=== PATIENT | female | born 1980 | race American Indian/Alaskan Native ===

== ENCOUNTER 2017-10-30 09:13 | Emergency (ER) | payer SELFPAY ==
[2017-10-30 11:17] VITALS: BP 116/76
--- NOTE | 2017-10-30 12:34 | Emergency Department Report ---
HPI - General Chief Complaint: Rectal Pain Time Seen by Provider: 10/30/17 12:17 - HPI HPI: 37-year-old female comes in complaining that she see a white specks in her stools for 1-1/2 weeks. Patient denies any pain or discomfort. She reports that she has a good appetite. She denies any constipation. She reports she has a stool 4-5 times a day. Stool is normal for him sometimes white chalky stuff. She reports her appetite fair she is eating normal TB dinners carryout. She denies any blood in her stool. She has no past medical history currently takes no other medications she does report she is taking over- the-counter protein performance supplement for increased weight gain. She reports she feels she may have lost a little weight. Denies any fevers chills nausea vomiting or diarrhea. Denies any abdominal pain sore throat chest pain shortness of breathing dysuria hematuria hematochezia. ED Past Medical Hx - Past Medical History Additional medical history: anemia - Surgical History Past Surgical History?: No - Social History Smoking Status: Current Some Day Smoker Substance Use Type: None - Medications Home Medications: Home Medications Medication Instructions Recorded Confirmed Last Taken Type Ferrous Sulfate [Feosol 325 MG tab] 325 mg PO QDAY #30 tablet 08/28/14 Unknown Rx medroxyPROGESTERone ACETATE 10 mg PO QDAY #10 tablet 08/28/14 Unknown Rx [Provera] ED Review of Systems ROS: Stated complaint: WHITE ITEMS IN STOOL Other details as noted in HPI Constitutional: denies: chills, fever Eyes: denies: eye pain, eye discharge, vision change ENT: denies: ear pain, throat pain Respiratory: denies: cough, shortness of breath, wheezing Cardiovascular: denies: chest pain, palpitations Endocrine: no symptoms reported Gastrointestinal: denies: abdominal pain, nausea, vomiting, diarrhea, constipation, hematemesis, melena, hematochezia Genitourinary: denies: urgency, dysuria, discharge Musculoskeletal: denies: back pain, joint swelling, arthralgia Skin: denies: rash, lesions Neurological: denies: headache, weakness, paresthesias Psychiatric: denies: anxiety, depression Hematological/Lymphatic: denies: easy bleeding, easy bruising Physical Exam - Physical Exam Vital Signs: Vital Signs 10/30/17 11:12 Temperature 99.2 F Pulse Rate 98 H Respiratory 16 Rate Blood Pressure 116/76 O2 Sat by Pulse 100 Oximetry Physical Exam: GENERAL APPEARANCE: Well developed, well nourished, in no acute distress. SKIN: Inspection of the skin reveals no rashes, ulcerations or petechiae. HEENT: The sclerae were anicteric and conjunctivae were pink and moist. Extraocular movements were intact and pupils were equal, round, and reactive to light with normal accommodation. External inspection of the ears and nose showed no scars, lesions, or masses. Lips, teeth, and gums showed normal mucosa. The oral mucosa, hard and soft palate, tongue and posterior pharynx were normal. NECK: Supple and symmetric. There was no thyroid enlargement, and no tenderness , or masses were felt. CHEST: Normal AP diameter and normal contour without any kyphoscoliosis. LUNGS: Auscultation of the lungs revealed normal breath sounds without any other adventitious sounds or rubs. CARDIOVASCULAR: There was a regular rate and rhythm without any murmurs, gallops , rubs. The carotid pulses were normal and 2+ bilaterally without bruits. ABDOMEN: Soft and nontender with normal bowel sounds. T LYMPH NODES: No lymphadenopathy was appreciated in the neck, axillae or groin. MUSCULOSKELETAL: Gait was normal. There was no tenderness or effusions noted. Muscle strength and tone were normal. EXTREMITIES: No cyanosis, clubbing or edema. NEUROLOGIC: Alert and oriented x 3. Normal affect. Gait was normal. ED Course Vital Signs 10/30/17 11:12 Temperature 99.2 F Pulse Rate 98 H Respiratory 16 Rate Blood Pressure 116/76 O2 Sat by Pulse 100 Oximetry ED Medical Decision Making - Medical Decision Making Patient has been evaluated by this provider Feslisa. Discussed with Dr. Soriano we feel that there is nothing acute patient needs to be followed up in the emergency room. Discussed the patient she could follow up with [facility] for further evaluation. Patient is stable and able to be discharged safely home. Critical care attestation.: If time is entered above; I have spent that time in minutes in the direct care of this critically ill patient, excluding procedure time. ED Disposition Clinical Impression: Stool color abnormal Disposition: DC-01 TO HOME OR SELFCARE Is pt being admited?: No Does the pt Need Aspirin: No Condition: Stable Instructions: High Fiber Diet (ED) Additional Instructions: Please follow up with [facility] for further evaluation. I have listed information below. Referrals: PRIMARY CARE, [Primary Care Provider] - 3-5 Days [facility] [Provider Group] - 3-5 Days Forms: Work/School Release Form(ED)
== END 2017-10-30 12:49 | disposition home or self-care (01) ==
LOC: ED 09:13
DX: R19.5 Other fecal abnormalities (principal); F17.200 Nicotine dependence, unspecified, uncomplicated; Z86.2 Personal history of diseases of the blood and blood-forming organs and certain disorders involving the immune mechanism
CPT/HCPCS: 99281

== ENCOUNTER 2018-08-24 15:38 | Emergency (ER) | payer BC ==
--- NOTE | 2018-08-24 18:15 | Emergency Department Report ---
ED Female HPI - General Chief complaint: Vaginal Bleeding Stated complaint: BLEEDING (PMS) Time Seen by Provider: 08/24/18 18:00 Source: patient Mode of arrival: Ambulatory Limitations: No Limitations - History of Present Illness Initial comments: This is 38-year-old female here complaining of vaginal bleeding in with clots since the last week of July when she started her period. Patient said that she is passing a lot of clots. She says she is using in 5-6 pads per day and she is feeling tired. Patient is at play at this hospital she does not have RADIO MECHANIC APPRENTICE. She does not have a primary care because she said she did not have the need for 1. Patient said that she feels tired and weak. Denies any abdominal or back pain. Denies any urinary burning, frequency or urgency. Denies any nausea or vomiting. Denies any chest pain or shortness of breath she said she had had an ultrasound in the past and they told her that she had fibroids when she started bleeding heavily. She said that she had no sexual activity since 2016. No other medical problems. Patient came here in 08/25/2014 and was placed on Provera daily for 10 days and for sulfate once a day for 30 days. MD Complaint: vaginal bleeding Onset/Timin -: week(s) Severity scale (0 -10): 0 Last Menstrual Period: 07/30/18 (present) EDC: 05/06/19 Associated Symptoms: vaginal bleeding. denies: vaginal discharge, abdominal pain, nausea/vomiting, fever/chills, headaches, loss of appetite, dysuria, h ematuria, rash, seizure, shortness of breath, syncope - Related Data Sexually active: No Previous Rx's Medication Instructions Recorded Last Taken Type Ferrous Sulfate [Feosol 325 MG tab] 325 mg PO QDAY #30 tablet 08/28/14 Unknown Rx medroxyPROGESTERone ACETATE 10 mg PO QDAY #10 tablet 08/28/14 Unknown Rx [Provera] Ferrous Sulfate [Slow Fe] 142 mg PO Q12H 30 Days #30 08/25/18 Unknown Rx tablet.er Ondansetron (Nf) [Zofran TAB] 8 mg PO Q8HR PRN #12 tablet 08/25/18 Unknown Rx cephALEXin [Keflex] 500 mg PO Q12HR 7 Days #14 cap 08/25/18 Unknown Rx Allergies Allergy/AdvReac Type Severity Reaction Status Date / Time No Known Allergies Allergy Verified 08/24/18 15:43 ED Review of Systems ROS: Stated complaint: BLEEDING (PMS) Other details as noted in HPI Constitutional: malaise. denies: chills, fever ENT: denies: throat pain, congestion Respiratory: denies: cough, shortness of breath, wheezing Cardiovascular: denies: chest pain, palpitations, edema, syncope Gastrointestinal: denies: abdominal pain, nausea, vomiting, diarrhea, constipation, hematemesis, hematochezia Genitourinary: abnormal menses. denies: dysuria, frequency, hematuria, discharge Musculoskeletal: denies: back pain, joint swelling, arthralgia, myalgia Skin: denies: rash Neurological: denies: headache, numbness, paresthesias, abnormal gait, vertigo ED Past Medical Hx - Past Medical History Previous Medical History?: Yes Additional medical history: anemia - Surgical History Past Surgical History?: No - Family History Family history: hypertension - Social History Smoking Status: Current Every Day Smoker Substance Use Type: None - Medications Home Medications: Home Medications Medication Instructions Recorded Confirmed Last Taken Type Ferrous Sulfate [Feosol 325 MG tab] 325 mg PO QDAY #30 tablet 08/28/14 Unknown Rx medroxyPROGESTERone ACETATE 10 mg PO QDAY #10 tablet 08/28/14 Unknown Rx [Provera] Ferrous Sulfate [Slow Fe] 142 mg PO Q12H 30 Days #30 08/25/18 Unknown Rx tablet.er Ondansetron (Nf) [Zofran TAB] 8 mg PO Q8HR PRN #12 tablet 08/25/18 Unknown Rx cephALEXin [Keflex] 500 mg PO Q12HR 7 Days #14 cap 08/25/18 Unknown Rx ED Physical Exam - General Limitations: No Limitations General appearance: alert, in no apparent distress - Head Head exam: Present: atraumatic, normocephalic, normal inspection - Eye Eye exam: Present: normal appearance, PERRL, EOMI Pupils: Present: normal accommodation - ENT ENT exam: Present: normal exam, normal orophraynx, mucous membranes moist - Neck Neck exam: Present: normal inspection, full ROM. Absent: tenderness, lymphadenopathy - Respiratory Respiratory exam: Present: normal lung sounds bilaterally. Absent: respiratory distress, chest wall tenderness - Cardiovascular Cardiovascular Exam: Present: regular rate, normal rhythm, normal heart sounds. Absent: systolic murmur, diastolic murmur - GI/Abdominal GI/Abdominal exam: Present: soft, normal bowel sounds. Absent: distended, tenderness, guarding, rebound, rigid, organomegaly, mass - External exam: Present: bleeding. Absent: normal external exam, erythema, swelling, lesions, lacerations, ecchymosis Speculum exam: Present: vaginal bleeding, other (clots). Absent: erythema, vaginal discharge, cervical discharge, foreign body, tissue, laceration Bi-manual exam: Present: normal bi-manual exam - Extremities Exam Extremities exam: Present: normal inspection, full ROM, normal capillary refill, other (No cce. + 2 pulses in all extremities, no neurovascular compromise). Absent: tenderness, pedal edema, joint swelling, calf tenderness - Back Exam Back exam: Present: normal inspection, full ROM, other (M believe that any difficulties while). Absent: tenderness, CVA tenderness (R), CVA tenderness (L), muscle spasm, paraspinal tenderness, vertebral tenderness, rash noted - Neurological Exam Neurological exam: Present: alert, oriented X3, normal gait - Psychiatric Psychiatric exam: Present: normal affect, normal mood - Skin Skin exam: Present: warm, dry, intact, normal color. Absent: rash ED Course Vital Signs 08/24/18 08/24/18 08/25/18 15:43 23:54 00:18 Temperature 98.2 F 9708 F H 97.8 F Pulse Rate 107 H 86 Respiratory 18 20 Rate Blood Pressure 129/90 Blood Pressure 118/68 [Left] O2 Sat by Pulse 100 98 Oximetry - Reevaluation(s) Reevaluation #1: 08/24/18 20:33 Patient received Toradol 30 mg IV, 1 L of normal saline, a milligram of Zofran IV. IV fluid is still infusing. Abdominal exam is nontender to palpate. Patient says she is already feeling better. Lab Results 08/24/18 08/24/18 08/24/18 Range/Units 18:19 18:19 18:19 WBC 7.5 (4.5-11.0) K/mm3 RBC 4.03 (3.65-5.03) M/mm3 Hgb 9.8 L (10.1-14.3) gm/dl Hct 29.1 L (30.3-42.9) % MCV 72 L (79-97) fl MCH 24 L (28-32) pg MCHC 34 (30-34) % RDW 25.7 H (13.2-15.2) % Plt Count 203 (140-440) K/mm3 Add Manual Diff Complete Total Counted 100 Seg Neuts % (Manual) 83.0 H (40.0-70.0) % Band Neutrophils % 1.0 % Lymphocytes % (Manual) 12.0 L (13.4-35.0) % Reactive Lymphs % (Man) 0 % Monocytes % (Manual) 1.0 (0.0-7.3) % Eosinophils % (Manual) 3.0 (0.0-4.3) % Basophils % (Manual) 0 (0.0-1.8) % Metamyelocytes % 0 % Myelocytes % 0 % Promyelocytes % 0 % Blast Cells % 0 % Nucleated RBC % Not Reportable Seg Neutrophils # Man 6.2 (1.8-7.7) K/mm3 Band Neutrophils # 0.1 K/mm3 Lymphocytes # (Manual) 0.9 L (1.2-5.4) K/mm3 Abs React Lymphs (Man) 0.0 K/mm3 Monocytes # (Manual) 0.1 (0.0-0.8) K/mm3 Eosinophils # (Manual) 0.2 (0.0-0.4) K/mm3 Basophils # (Manual) 0.0 (0.0-0.1) K/mm3 Metamyelocytes # 0.0 K/mm3 Myelocytes # 0.0 K/mm3 Promyelocytes # 0.0 K/mm3 Blast Cells # 0.0 K/mm3 WBC Morphology Not Reportable Hypersegmented Neuts Not Reportable Hyposegmented Neuts Not Reportable Hypogranular Neuts Not Reportable Smudge Cells Not Reportable Toxic Granulation Not Reportable Toxic Vacuolation Not Reportable Dohle Bodies Not Reportable Pelger-Huet Anomaly Not Reportable David Rods Not Reportable Platelet Estimate Consistent w auto Clumped Platelets Not Reportable Plt Clumps, EDTA Not Reportable Large Platelets Not Reportable Giant Platelets Not Reportable Platelet Satelliting Not Reportable Plt Morphology Comment Not Reportable RBC Morphology Not Reportable Dimorphic RBCs Not Reportable Polychromasia Not Reportable Hypochromasia Not Reportable Poikilocytosis Not Reportable Anisocytosis 1+ Microcytosis Not Reportable Macrocytosis Not Reportable Spherocytes Not Reportable Pappenheimer Bodies Not Reportable Sickle Cells Not Reportable Target Cells Not Reportable Tear Drop Cells Not Reportable Ovalocytes Not Reportable Helmet Cells Not Reportable Issa-Vassar Bodies Not Reportable [place] Rings Not Reportable [place] Cells Not Reportable Bite Cells Not Reportable Crenated Cell Not Reportable Elliptocytes Not Reportable Acanthocytes (Spur) Not Reportable Rouleaux Not Reportable Hemoglobin C Crystals Not Reportable Schistocytes Not Reportable Malaria parasites Not Reportable [place] Bodies Not Reportable Hem Pathologist Commnt No PT 12.3 (12.2-14.9) Sec. INR 0.88 (0.87-1.13) APTT 28.6 (24.2-36.6) Sec. Sodium (137-145) mmol/L Potassium (3.6-5.0) mmol/L Chloride (98-107) mmol/L Carbon Dioxide (22-30) mmol/L Anion Gap mmol/L BUN (7-17) mg/dL Creatinine (0.7-1.2) mg/dL Estimated GFR ml/min BUN/Creatinine Ratio % Glucose (65-100) mg/dL Calcium (8.4-10.2) mg/dL HCG, Quant (0-4) mIU/mL Urine Color (Yellow) Urine Turbidity (Clear) Urine pH (5.0-7.0) Ur Specific [place] (1.003-1.030) Urine Protein (Negative) mg/dL Urine Glucose (UA) (Negative) mg/dL Urine Ketones (Negative) mg/dL Urine Blood (Negative) Urine Nitrite (Negative) Ur Reducing Substances Urine Bilirubin (Negative) Urine Ictotest Urine Urobilinogen (<2.0) mg/dL Ur Leukocyte Esterase (Negative) Urine WBC (Auto) (0.0-6.0) /HPF Urine RBC (Auto) (0.0-6.0) /HPF Urine Bacteria (Auto) (Negative) /HPF Urine HCG, Qual (Negative) Blood Type O POSITIVE Antibody Screen Negative 08/24/18 08/24/18 08/24/18 Range/Units 18:19 18:46 19:40 WBC (4.5-11.0) K/mm3 RBC (3.65-5.03) M/mm3 Hgb (10.1-14.3) gm/dl Hct (30.3-42.9) % MCV (79-97) fl MCH (28-32) pg MCHC (30-34) % RDW (13.2-15.2) % Plt Count (140-440) K/mm3 Add Manual Diff Total Counted Seg Neuts % (Manual) (40.0-70.0) % Band Neutrophils % % Lymphocytes % (Manual) (13.4-35.0) % Reactive Lymphs % (Man) % Monocytes % (Manual) (0.0-7.3) % Eosinophils % (Manual) (0.0-4.3) % Basophils % (Manual) (0.0-1.8) % Metamyelocytes % % Myelocytes % % Promyelocytes % % Blast Cells % % Nucleated RBC % Seg Neutrophils # Man (1.8-7.7) K/mm3 Band Neutrophils # K/mm3 Lymphocytes # (Manual) (1.2-5.4) K/mm3 Abs React Lymphs (Man) K/mm3 Monocytes # (Manual) (0.0-0.8) K/mm3 Eosinophils # (Manual) (0.0-0.4) K/mm3 Basophils # (Manual) (0.0-0.1) K/mm3 Metamyelocytes # K/mm3 Myelocytes # K/mm3 Promyelocytes # K/mm3 Blast Cells # K/mm3 WBC Morphology Hypersegmented Neuts Hyposegmented Neuts Hypogranular Neuts Smudge Cells Toxic Granulation Toxic Vacuolation Dohle Bodies Pelger-Huet Anomaly David Rods Platelet Estimate Clumped Platelets Plt Clumps, EDTA Large Platelets Giant Platelets Platelet Satelliting Plt Morphology Comment RBC Morphology Dimorphic RBCs Polychromasia Hypochromasia Poikilocytosis Anisocytosis Microcytosis Macrocytosis Spherocytes Pappenheimer Bodies Sickle Cells Target Cells Tear Drop Cells Ovalocytes Helmet Cells Issa-Vassar Bodies [place] Cells Bite Cells Crenated Cell Elliptocytes Acanthocytes (Spur) Rouleaux Hemoglobin C Crystals Schistocytes Malaria parasites [place] Bodies Hem Pathologist Commnt PT (12.2-14.9) Sec. INR (0.87-1.13) APTT (24.2-36.6) Sec. Sodium 141 (137-145) mmol/L Potassium 3.7 (3.6-5.0) mmol/L Chloride 103.3 (98-107) mmol/L Carbon Dioxide 26 (22-30) mmol/L Anion Gap 15 mmol/L BUN 7 (7-17) mg/dL Creatinine 0.6 L (0.7-1.2) mg/dL Estimated GFR > 60 ml/min BUN/Creatinine Ratio 12 % Glucose 182 H (65-100) mg/dL Calcium 9.1 (8.4-10.2) mg/dL HCG, Quant 0.727 (0-4) mIU/mL Urine Color Red (Yellow) Urine Turbidity Cloudy (Clear) Urine pH 7.0 (5.0-7.0) Ur Specific [place] 1.008 (1.003-1.030) Urine Protein >500 (Negative) mg/dL Urine Glucose (UA) 50 (Negative) mg/dL Urine Ketones Tr (Negative) mg/dL Urine Blood Lg (Negative) Urine Nitrite Pos (Negative) Ur Reducing Substances Not Reportable Urine Bilirubin Neg (Negative) Urine Ictotest Not Reportable Urine Urobilinogen < 2.0 (<2.0) mg/dL Ur Leukocyte Esterase Neg (Negative) Urine WBC (Auto) 40.0 H (0.0-6.0) /HPF Urine RBC (Auto) > 182.0 (0.0-6.0) /HPF Urine Bacteria (Auto) 1+ (Negative) /HPF Urine HCG, Qual Negative (Negative) Blood Type Antibody Screen Urine culture pending 08/24/18 23:44 08/24/18 23:45 Reevaluation #2: 08/24/18 22:15 Patient remained stable IV fluid completed. She is in no acute distress. Awaiting ultrasound results Reevaluation #3: 08/24/18 23:[address] Pabon who is RADIO MECHANIC APPRENTICE and inform her that radiology call and report that patient has what look to be a gestational sac and her te st is negative patient also uterine fibroids, anemia and UTI. I discussed patient presentation and clinical findings and she reports that she thinks it might be a clot and that patient can follow up outpatient. She is to call the office on Sunday to get appointment.. Patient says she is feeling a lot better. She is aware of ultrasound results - Consultations Consultation #1: 08/24/18 23:04 Dr. Pabon informed of ultrasound results ED Medical Decision Making - Lab Data Result diagrams: 08/24/18 18:19 08/24/18 18:46 Lab Results 08/24/18 08/24/18 08/24/18 Range/Units 18:19 18:19 18:19 WBC 7.5 (4.5-11.0) K/mm3 RBC 4.03 (3.65-5.03) M/mm3 Hgb 9.8 L (10.1-14.3) gm/dl Hct 29.1 L (30.3-42.9) % MCV 72 L (79-97) fl MCH 24 L (28-32) pg MCHC 34 (30-34) % RDW 25.7 H (13.2-15.2) % Plt Count 203 (140-440) K/mm3 Add Manual Diff Complete Total Counted 100 Seg Neuts % (Manual) 83.0 H (40.0-70.0) % Band Neutrophils % 1.0 % Lymphocytes % (Manual) 12.0 L (13.4-35.0) % Reactive Lymphs % (Man) 0 % Monocytes % (Manual) 1.0 (0.0-7.3) % Eosinophils % (Manual) 3.0 (0.0-4.3) % Basophils % (Manual) 0 (0.0-1.8) % Metamyelocytes % 0 % Myelocytes % 0 % Promyelocytes % 0 % Blast Cells % 0 % Nucleated RBC % Not Reportable Seg Neutrophils # Man 6.2 (1.8-7.7) K/mm3 Band Neutrophils # 0.1 K/mm3 Lymphocytes # (Manual) 0.9 L (1.2-5.4) K/mm3 Abs React Lymphs (Man) 0.0 K/mm3 Monocytes # (Manual) 0.1 (0.0-0.8) K/mm3 Eosinophils # (Manual) 0.2 (0.0-0.4) K/mm3 Basophils # (Manual) 0.0 (0.0-0.1) K/mm3 Metamyelocytes # 0.0 K/mm3 Myelocytes # 0.0 K/mm3 Promyelocytes # 0.0 K/mm3 Blast Cells # 0.0 K/mm3 WBC Morphology Not Reportable Hypersegmented Neuts Not Reportable Hyposegmented Neuts Not Reportable Hypogranular Neuts Not Reportable Smudge Cells Not Reportable Toxic Granulation Not Reportable Toxic Vacuolation Not Reportable Dohle Bodies Not Reportable Pelger-Huet Anomaly Not Reportable David Rods Not Reportable Platelet Estimate Consistent w auto Clumped Platelets Not Reportable Plt Clumps, EDTA Not Reportable Large Platelets Not Reportable Giant Platelets Not Reportable Platelet Satelliting Not Reportable Plt Morphology Comment Not Reportable RBC Morphology Not Reportable Dimorphic RBCs Not Reportable Polychromasia Not Reportable Hypochromasia Not Reportable Poikilocytosis Not Reportable Anisocytosis 1+ Microcytosis Not Reportable Macrocytosis Not Reportable Spherocytes Not Reportable Pappenheimer Bodies Not Reportable Sickle Cells Not Reportable Target Cells Not Reportable Tear Drop Cells Not Reportable Ovalocytes Not Reportable Helmet Cells Not Reportable Issa-Vassar Bodies Not Reportable [place] Rings Not Reportable [place] Cells Not Reportable Bite Cells Not Reportable Crenated Cell Not Reportable Elliptocytes Not Reportable Acanthocytes (Spur) Not Reportable Rouleaux Not Reportable Hemoglobin C Crystals Not Reportable Schistocytes Not Reportable Malaria parasites Not Reportable [place] Bodies Not Reportable Hem Pathologist Commnt No PT 12.3 (12.2-14.9) Sec. INR 0.88 (0.87-1.13) APTT 28.6 (24.2-36.6) Sec. Sodium (137-145) mmol/L Potassium (3.6-5.0) mmol/L Chloride (98-107) mmol/L Carbon Dioxide (22-30) mmol/L Anion Gap mmol/L BUN (7-17) mg/dL Creatinine (0.7-1.2) mg/dL Estimated GFR ml/min BUN/Creatinine Ratio % Glucose (65-100) mg/dL Calcium (8.4-10.2) mg/dL HCG, Quant (0-4) mIU/mL Urine Color (Yellow) Urine Turbidity (Clear) Urine pH (5.0-7.0) Ur Specific [place] (1.003-1.030) Urine Protein (Negative) mg/dL Urine Glucose (UA) (Negative) mg/dL Urine Ketones (Negative) mg/dL Urine Blood (Negative) Urine Nitrite (Negative) Ur Reducing Substances Urine Bilirubin (Negative) Urine Ictotest Urine Urobilinogen (<2.0) mg/dL Ur Leukocyte Esterase (Negative) Urine WBC (Auto) (0.0-6.0) /HPF Urine RBC (Auto) (0.0-6.0) /HPF Urine Bacteria (Auto) (Negative) /HPF Urine HCG, Qual (Negative) Blood Type O POSITIVE Antibody Screen Negative 08/24/18 08/24/18 08/24/18 Range/Units 18:19 18:46 19:40 WBC (4.5-11.0) K/mm3 RBC (3.65-5.03) M/mm3 Hgb (10.1-14.3) gm/dl Hct (30.3-42.9) % MCV (79-97) fl MCH (28-32) pg MCHC (30-34) % RDW (13.2-15.2) % Plt Count (140-440) K/mm3 Add Manual Diff Total Counted Seg Neuts % (Manual) (40.0-70.0) % Band Neutrophils % % Lymphocytes % (Manual) (13.4-35.0) % Reactive Lymphs % (Man) % Monocytes % (Manual) (0.0-7.3) % Eosinophils % (Manual) (0.0-4.3) % Basophils % (Manual) (0.0-1.8) % Metamyelocytes % % Myelocytes % % Promyelocytes % % Blast Cells % % Nucleated RBC % Seg Neutrophils # Man (1.8-7.7) K/mm3 Band Neutrophils # K/mm3 Lymphocytes # (Manual) (1.2-5.4) K/mm3 Abs React Lymphs (Man) K/mm3 Monocytes # (Manual) (0.0-0.8) K/mm3 Eosinophils # (Manual) (0.0-0.4) K/mm3 Basophils # (Manual) (0.0-0.1) K/mm3 Metamyelocytes # K/mm3 Myelocytes # K/mm3 Promyelocytes # K/mm3 Blast Cells # K/mm3 WBC Morphology Hypersegmented Neuts Hyposegmented Neuts Hypogranular Neuts Smudge Cells Toxic Granulation Toxic Vacuolation Dohle Bodies Pelger-Huet Anomaly David Rods Platelet Estimate Clumped Platelets Plt Clumps, EDTA Large Platelets Giant Platelets Platelet Satelliting Plt Morphology Comment RBC Morphology Dimorphic RBCs Polychromasia Hypochromasia Poikilocytosis Anisocytosis Microcytosis Macrocytosis Spherocytes Pappenheimer Bodies Sickle Cells Target Cells Tear Drop Cells Ovalocytes Helmet Cells Issa-Vassar Bodies [place] Rings [place] Cells Bite Cells Crenated Cell Elliptocytes Acanthocytes (Spur) Rouleaux Hemoglobin C Crystals Schistocytes Malaria parasites [place] Bodies Hem Pathologist Commnt PT (12.2-14.9) Sec. INR (0.87-1.13) APTT (24.2-36.6) Sec. Sodium 141 (137-145) mmol/L Potassium 3.7 (3.6-5.0) mmol/L Chloride 103.3 (98-107) mmol/L Carbon Dioxide 26 (22-30) mmol/L Anion Gap 15 mmol/L BUN 7 (7-17) mg/dL Creatinine 0.6 L (0.7-1.2) mg/dL Estimated GFR > 60 ml/min BUN/Creatinine Ratio 12 % Glucose 182 H (65-100) mg/dL Calcium 9.1 (8.4-10.2) mg/dL HCG, Quant 0.727 (0-4) mIU/mL Urine Color Red (Yellow) Urine Turbidity Cloudy (Clear) Urine pH 7.0 (5.0-7.0) Ur Specific [place] 1.008 (1.003-1.030) Urine Protein >500 (Negative) mg/dL Urine Glucose (UA) 50 (Negative) mg/dL Urine Ketones Tr (Negative) mg/dL Urine Blood Lg (Negative) Urine Nitrite Pos (Negative) Ur Reducing Substances Not Reportable Urine Bilirubin Neg (Negative) Urine Ictotest Not Reportable Urine Urobilinogen < 2.0 (<2.0) mg/dL Ur Leukocyte Esterase Neg (Negative) Urine WBC (Auto) 40.0 H (0.0-6.0) /HPF Urine RBC (Auto) > 182.0 (0.0-6.0) /HPF Urine Bacteria (Auto) 1+ (Negative) /HPF Urine HCG, Qual Negative (Negative) Blood Type Antibody Screen Urine culture pending - Radiology Data Radiology results: report reviewed Patient has had transvaginal and a leg ultrasound done that was dictated by radiologist's report called to myself. I reviewed her ultrasound report resu lts. Please see report below. Findings [facility] [address] [place] [address] Ultrasound Report Signed Patient: DAKOTA TORRES MR#: [id number] : 1980 Acct:[id number] Age/Sex: 38 / F ADM Date: 08/24/18 Loc: ED Attending Dr: Ordering Physician: YAHAIRA BAEZ Date of Service: 08/24/18 Procedure(s): US transvaginal Accession Number(s): [id number] cc: YAHAIRA BAEZ FINAL REPORT EXAM: US TRANSVAGINAL HISTORY: Pelvic pain the patient is not clinically . Heavy vaginal bleeding for 3 weeks with anemia. TECHNIQUE: Transvaginal grayscale and color-flow imaging of the pelvis was performed. Comparison: Transabdominal study also performed today. FINDINGS: The pelvic anatomy is not clearly demonstrated with this study. The uterus appears to measure 14.1 centimeters x 10.5 centimeters x 10.4 centimeters. There is demonstration of an approximately 8 centimeter fibroid in the uterine fundus. More inferiorly within the uterus there is a hypoechoic collection with internal echoes that measures approximately 6.6 centimeters by a 2.7 centimeters by 4.4 centimeters in size. This is of unclear etiology. The right ovary is not visualized. The left ovary measures 2.9 centimeters x 1.9 centimeters x 1.6 centimeters and is unremarkable in appearance. No free fluid is demonstrated in the pelvis. IMPRESSION: 1. The pelvic anatomy is not clearly demonstrated with this study. 2. Approximately 8 centimeter fibroid is demonstrated in the uterine fundus. 3. Adjacent to the uterine fibroid and probably within the uterus there is a hypoechoic collection with internal echoes that measures approximately 6.6 centimeters in the maximum dimension. This is of unclear etiology in this patient who is not clinically . 4. The right ovary is not visualized. 5. The left ovary is unremarkable in appearance. Recommend referral to GENERATION MANAGER for further evaluation in this patient with heavy vaginal bleeding and heterogeneous collection that appears to be intrauterine.. Ultrasound imaging with GENERATION MANAGER present would be helpful. Alternatively MRI may be helpful for further evaluation. The above findings and recommendation for referral to GENERATION MANAGER were discussed with [employer]K RECE[employer] Amanda Pennington at 10:50 p.m. August 24, 2018. Transcribed By: ED Dictated By: BE LAZCANO MD Electronically Authenticated By: BE LAZCANO MD Signed Date/Time: 08/24/182307 DD/ 10 TD/TT: 08/24/182310 - Medical Decision Making This is a 38-year-old female here report that she has been having heavy menstrual cycle for over 4 weeks. She says she has had this in the past. She said she had a cycle in June that lasted 2 weeks and then she started the last week of July and she still bleeding. She says she is feeling weak and tired. Upon review of charts noted the patient was here in 2014 with similar problems, anemia and was placed on iron tablet and progesterone. Patient reveals that she has a uterine fibroid and ultrasound from 2015 shows the patient had a large uterine fibroid. Transvaginal and pelvic ultrasound done today and it shows 1. The pelvic anatomy is not clearly demonstrated with this study. 2. Approximately 8 centimeter fibroid is demonstrated in the uterine fundus. 3. Adjacent to the uterine fibroid and probably within the uterus there is a hypoechoic collection with internal echoes that measures approximately 6.6 centimeters in the maximum dimension. This is of unclear etiology in this patient who is not clinically . 4. The right ovary is not visualized. 5. The left ovary is unremarkable in appearance. Recommend referral to GENERATION MANAGER for further evaluation in this patient with heavy vaginal bleeding and heterogeneous collection that appears to be intrauterine.. Ultrasound imaging with GENERATION MANAGER present would be helpful. Alternatively MRI may be helpful for further evaluation. CBC with H&H of 9.8 and 29.1 and come. 2 H&H in 2015 it was better today. Platelets normal, PT/INR, PTT stable. Chemistry is stable except her glucose was 182. Urine negative and hormone negative. Patient and urinalysis were UTI and shows large amount of blood but there was azra blood and urine with specimen. She has greater than 500 protein suspect from blood and urine. Cloudy urine with positive bacteria. Patient has no urinary symptoms. Urine culture sent. I spoke with Dr. Pabon asked the radiologist called and informed her of patient's laboratory results and radiology concern regarding obtaining that looks like gestational sac and the uterus but she is not sure. Radiologist wanted RADIO MECHANIC APPRENTICE to see patient. Dr. Dylan Dinero informed me the patient can get an appointment in her office next week and follow-up because she thinks the patient has a clot that appears to be a sac but it could be a clot and patient is having large amount of clots. I informed patient of her ultrasound report, laboratory results and urinalysis for urinary tract infection, diagnosis and she voiced understanding. Patient was given 1 L of IV fluids in ED, Toradol 30 mg IV, Zofran 8 mg IV and able to tolerate fluids and says she is feeling better. I went over all her lab work with her and she voiced understanding. I discussed with her that I will place her on iron pill and also antibiotic for urinary tract infection. Patient discharged home in stable condition to follow up with Dr. Pabon in 2-3 days and given prescription for Keflex, Zofran and Slow Fe. Vital signs are stable she is afebrile and discharged home feeling better. - Differential Diagnosis malignancy ,miscarriage, fibroids, hemorrhagic UTI, menorrhagia Critical care attestation.: If time is entered above; I have spent that time in minutes in the direct care of this critically ill patient, excluding procedure time. ED Disposition Clinical Impression: Menorrhalgia Uterine fibroid Qualifiers: Uterine leiomyoma location: unspecified location Qualified Code(s): D25.9 - Leiomyoma of uterus, unspecified Anemia Qualifiers: Anemia type: other cause Other causes of anemia: other cause, not classified Qualified Code(s): D64.89 - Other specified anemias Fatigue Qualifiers: Fatigue type: unspecified Qualified Code(s): R53.83 - Other fatigue Disposition: DC-01 TO HOME OR SELFCARE Is pt being admited?: No Does the pt Need Aspirin: No Condition: Stable Instructions: Uterine Fibroids (ED), Urinary Tract Infection in Women (ED), Iron Rich Diet (ED), Menorrhagia (ED), Fatigue (ED), Anemia (ED) Additional Instructions: Please follow-up with Dr. 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 Take medication as prescribed. Increase fiber and fluid and your diet. Take medication for urinary tract infection Few symptoms worsen, return to the emergency room. Prescriptions: cephALEXin [Keflex] 500 mg PO Q12HR 7 Days #14 cap Ferrous Sulfate [Slow Fe] 142 mg PO Q12H 30 Days #30 tablet.er Ondansetron (Nf) [Zofran TAB] 8 mg PO Q8HR PRN #12 tablet PRN Reason: nausea or vomiting Referrals: DEB ALLAN MD [Staff Physician] - 2-3 Days JABIER SALMERON MD [Primary Care Provider] - 2-3 Days Forms: Work/School Release Form(ED)
[2018-08-24] MEDS ORDERED: NACL 0.9% 1000 ML 1,000 ML IV ONE (18:36)
[2018-08-24] MEDS ORDERED: ZOFRAN IV ONE (18:36)
[2018-08-24] MEDS ORDERED: TORADOL IVP ONE (18:36)
[2018-08-24 18:39] LABS: Hematocrit 29.1 % (30.3-42.9); Hemoglobin 9.8 gm/dl (10.1-14.3); Mean Corpuscular HGB Conc 34 % (30-34); Mean Corpuscular Volume 72 fl (79-97); Platelet Count 203 K/mm3 (140-440); Red Blood Count 4.03 M/mm3 (3.65-5.03)
[2018-08-24 18:43] LABS: INR 0.88 (0.87-1.13)
[2018-08-24 18:45] LABS: Partial Thromboplastin Time 28.6 Sec. (24.2-36.6)
[2018-08-24 18:48] LABS: Red Cell Distribution Width 25.7 % (13.2-15.2)
[2018-08-24 19:24] LABS: BUN/Creatinine Ratio 12; Blood Urea Nitrogen 7 mg/dL (7-17); Calcium 9.1 mg/dL (8.4-10.2); Hemolysis Index 1
[2018-08-24 20:48] LABS: HCG Qualitative,Urine Negative (Negative)
[2018-08-24 20:57] LABS: Bilirubin,Urine NEG (Negative); Blood,Urine LG (Negative); Color,Urine Red (Yellow); Urobilinogen,Urine < 2.0 mg/dL (<2.0)
[2018-08-24 21:04] LABS: Bacteria,Urine 1+ /HPF (Negative)
[2018-08-24 21:05] LABS: Protein,Urine >500 mg/dL (Negative); RBC,Urine > 182.0 /HPF (0.0-6.0)
[2018-08-24 21:23] LABS: Anisocytosis 1+; Band Neutrophils # (Manual) 0.1 K/mm3; Basophils % (Manual) 0 % (0.0-1.8); Platelet Estimate Consistent w Auto; Total Cells Counted 100
[2018-08-24] MEDS ORDERED: BACTRIM DS PO ONE (21:41)
--- NOTE | 2018-08-24 23:08 | Ultrasound Report ---
FINAL REPORT EXAM: US TRANSVAGINAL HISTORY: Pelvic pain the patient is not clinically . Heavy vaginal bleeding for 3 weeks with anemia. TECHNIQUE: Transvaginal grayscale and color-flow imaging of the pelvis was performed. Comparison: Transabdominal study also performed today. FINDINGS: The pelvic anatomy is not clearly demonstrated with this study. The uterus appears to measure 14.1 centimeters x 10.5 centimeters x 10.4 centimeters. There is demonstration of an approximately 8 centimeter fibroid in the uterine fundus. More inferiorly within the uterus there is a hypoechoic collection with internal echoes that measures approximately 6.6 centimeters by a 2.7 centimeters by 4.4 centimeters in size. This is of unclear et iology. The right ovary is not visualized. The left ovary measures 2.9 centimeters x 1.9 centimeters x 1.6 centimeters and is unremarkable in ap pearance. No free fluid is demonstrated in the pelvis. IMPRESSION: 1. The pelvic anatomy is not clearly demonstrated with this study. 2. Approximately 8 centimeter fibroid is demonstrated in the uterine fundus. 3. Adjacent to the uterine fibroid and probably within the uterus there is a hypoechoic collection wi th internal echoes that measures approximately 6.6 centimeters in the maximum dimension. This is of u nclear etiology in this patient who is not clinically . 4. The right ovary is not visualized. 5. The left ovary is unremarkable in appearance. Recommend referral to [facility] for further evaluation in this patient with heavy vaginal bleeding and hete rogeneous collection that appears to be intrauterine.. Ultrasound imaging with [facility] present would be helpful. Alternatively MRI may be helpful for further ev aluation. The above findings and recommendation for referral to [facility] were discussed with JASON Pennington at 10:50 p.m. August 24, 2018.
--- NOTE | 2018-08-24 23:12 | Ultrasound Report ---
FINAL REPORT EXAM: US PELVIC COMPLETE HISTORY: vaginal bleed with clots for over 3 weeks TECHNIQUE: Transabdominal grayscale and color-flow imaging of the pelvis was performed. Comparison: Transvaginal study also performed today FINDINGS: The uterus appears to measure 14.1 centimeters x 10.5 centimeters x 10.4 centimeters. There is demonstration of an intrauterine fibroid that measures approximately 8 centimeters in size. Adjacent to the fibroid and what appears to be within the uterus there is a heterogeneous low-attenua tion collection with internal echoes that is of unclear etiology this patient who is not clinically p regnant. The ovaries are not visualized on the transabdominal study. No free fluid is demonstrated in the pelvis. IMPRESSION: 1. Large uterine fibroid. 2. Heterogeneous low-attenuation collection with internal echoes that appears to be within the uterus and is of unclear etiology this patient who is not clinically . Referral to IT APPLICATION DEVELOPMENT MANAGER is recommended for further evaluation. Please see report of transvaginal study also performed today.
[2018-08-24 23:56] VITALS: BP 118/68
== END 2018-08-25 00:44 | disposition home or self-care (01) ==
LOC: ED 15:38
DX: D64.89 Other specified anemias (principal); D25.9 Leiomyoma of uterus, unspecified; R53.83 Other fatigue; N92.0 Excessive and frequent menstruation with regular cycle; F17.200 Nicotine dependence, unspecified, uncomplicated; Z79.899 Other long term (current) drug therapy
CPT/HCPCS: 36415; 76830; 76856; 80048; 81001; 81025; 84702; 85007; 85025; 85610; 85730; 86850; 86900; 86901; 96374; 96375; 99284; J1885; J2405; J7030

== ENCOUNTER 2018-08-30 06:14 | Observation (INO) | payer BC ==
[2018-08-30 07:21] LABS: Hemoglobin 6.5 gm/dl (10.1-14.3); Mean Corpuscular HGB Conc 33 % (30-34); Mean Corpuscular Volume 76 fl (79-97); Platelet Count 221 K/mm3 (140-440); Red Blood Count 2.58 M/mm3 (3.65-5.03)
[2018-08-30 07:25] LABS: Red Cell Distribution Width 25.1 % (13.2-15.2)
[2018-08-30 07:27] LABS: Hematocrit 19.6 % (30.3-42.9)
[2018-08-30 07:39] LABS: BUN/Creatinine Ratio 12; Blood Urea Nitrogen 7 mg/dL (7-17); Calcium 8.6 mg/dL (8.4-10.2); Hemolysis Index 4
[2018-08-30] MEDS ORDERED: NACL 0.9% 500 ML 500 ML IV ONE (07:44)
--- NOTE | 2018-08-30 07:47 | Emergency Department Report ---
HPI - General Chief Complaint: Vaginal Bleeding Time Seen by Provider: 08/30/18 07:18 - HPI HPI: 38 year-old female presents to the emergency department with complaint of continued heavy vaginal bleeding and now she has complaints of some shortness of breath and dizziness/lightheadedness. The patient was seen here about one week ago for the heavy vaginal bleeding, which is been going on since 08/02/18. At that time the patient had a hemoglobin of 9.8 and it appears to have dropped about 3 g since that time. Patient says that she is wearing 2 pads at a time and will soak through them. The patient had an ultrasound done during her last visit that showed an 8 cm fibroid. The patient says that she had one episode of heavy vaginal bleeding and/or dysfunctional uterine bleeding in 2016 and was placed on control pills, but she stopped that when the bleeding decreased. Patient says that she has an appointment with Dr. Pabon on September 09 but that will be the first appointment to establish care and is from her previous visit's referral. ED Past Medical Hx - Past Medical History Previous Medical History?: Yes Additional medical history: anemia - Surgical History Past Surgical History?: No - Social History Smoking Status: Current Every Day Smoker Substance Use Type: None - Medications Home Medications: Home Medications Medication Instructions Recorded Confirmed Last Taken Type RX: Ferrous Sulfate [Feosol 325 MG 325 mg PO QDAY #30 tablet 08/28/14 08/30/18 Unknown Rx tab] Ondansetron (Nf) [Zofran TAB] 8 mg PO Q8HR PRN #12 tablet 08/25/18 08/30/18 Unknown Rx cephALEXin [Keflex] 500 mg PO Q12HR 7 Days #14 cap 08/25/18 08/30/18 Unknown Rx ED Review of Systems ROS: Stated complaint: SOB VAGINAL BLEEDING Other details as noted in HPI Comment: All other systems reviewed and negative Constitutional: denies: chills, fever Eyes: denies: eye pain, vision change ENT: denies: ear pain, throat pain Respiratory: shortness of breath. denies: cough Cardiovascular: denies: chest pain, palpitations Gastrointestinal: denies: abdominal pain, vomiting Genitourinary: abnormal menses. denies: dysuria Musculoskeletal: denies: back pain, arthralgia Skin: denies: rash, lesions Neurological: other (dizzy, lightheaded). denies: headache Physical Exam - Physical Exam Vital Signs: Vital Signs 08/30/18 06:26 Temperature 98.6 F Pulse Rate 116 H Respiratory 20 Rate Blood Pressure 105/70 O2 Sat by Pulse 100 Oximetry Physical Exam: GENERAL: The patient is well-developed well-nourished. HEENT: Normocephalic. Atraumatic. Patient has moist mucous membranes. EYES: Extraocular motions are intact. Pupils are equal and reactive to light bilaterally. Pale conjunctiva. NECK: Supple. Trachea is midline. CHEST/LUNGS: Clear to auscultation. There is no respiratory distress noted. HEART/CARDIOVASCULAR: Regular. There is mild tachycardia. There is no obvious murmur. ABDOMEN: Abdomen is soft, nontender. Patient has normal bowel sounds. There is no abdominal distention. SKIN: Skin is warm and dry. NEURO: The patient is awake, alert, and oriented. The patient is cooperative. The patient has no focal neurologic deficits. The patient has normal speech. MUSCULOSKELETAL: There is no tenderness or deformity. There is no limitation range of motion. There is no evidence of acute injury. ED Course Vital Signs 08/30/18 06:26 Temperature 98.6 F Pulse Rate 116 H Respiratory 20 Rate Blood Pressure 105/70 O2 Sat by Pulse 100 Oximetry ED Medical Decision Making - Lab Data Result diagrams: 08/30/18 06:43 08/30/18 06:43 - EKG Data -: EKG Interpreted by Me EKG shows normal: sinus rhythm, axis, intervals, QRS complexes, ST-T waves (nonspecific T waves) Rate: tachycardia (118 bpm) - EKG Data When compared to previous EKG there are: previous EKG unavailable Interpretation: other (sinus tachycardia at 118 bpm, nonspecific T-wave abnormalities) - Radiology Data Radiology results: image reviewed interpreted by me: Chest x-ray does not show any pneumothorax, pleural effusion, pneumonia or obvious focal consolidation. - Medical Decision Making Patient presents with a continuation of her heavy vaginal menstrual bleeding and now she appears to have symptomatic anemia. The patient dropped 3 g in 6 days. Her previous ultrasound from last weekend shows a 8 cm fibroid. Chest x-ray did not show any signs of pneumonia, pneumothorax, focal consolidation, pleural effusions, or any other acute process. I ordered 2 units of packed blood cells for transfusion to start. The patient has been graciously accepted for admission by the [employer] [facility] water pollution control inspector, Dr. Sakina Win. - Differential Diagnosis iron deficiency, menorrhagia, malignancy Critical Care Time: No Critical care attestation.: If time is entered above; I have spent that time in minutes in the direct care of this critically ill patient, excluding procedure time. 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
[2018-08-30] MEDS ORDERED: NACL 0.9% 1000 ML 1,000 ML IV ONE (07:49)
[2018-08-30] MEDS ORDERED: K-DUR PO ONE (08:00)
[2018-08-30 08:03] LABS: Basophils % (Manual) 0 % (0.0-1.8); Eosinophils % (Manual) 0 % (0.0-4.3); Total Cells Counted 100
[2018-08-30 08:05] LABS: Anisocytosis 2+; Hypochromasia 1+; Macrocytosis Few; Platelet Estimate Consistent w Auto; Poikilocytosis 1+; Target Cells 1+
--- NOTE | 2018-08-30 08:15 | XRay Report ---
AP CHEST: HISTORY: Shortness of breath AP view of the chest demonstrates a normal mediastinal and cardiac contour with clear lungs and normal bony and soft tissue structures. IMPRESSION: Unremarkable AP chest.
[2018-08-30 08:23] LABS: Bilirubin,Urine NEG (Negative); Blood,Urine LG (Negative); Color,Urine Red (Yellow); Urobilinogen,Urine < 2.0 mg/dL (<2.0)
[2018-08-30 08:35] LABS: Protein,Urine >2000 mg dL mg/dL (Negative)
[2018-08-30 09:24] LABS: RBC,Urine > 182.0 /HPF (0.0-6.0); WBC,Urine > 182.0 /HPF (0.0-6.0)
[2018-08-30] MEDS ORDERED: ROCEPHIN/NS 1 GM/50 ML 1 GM/50 ML BAG IV ONE (11:00)
[2018-08-30] MEDS ORDERED: TYLENOL PO PRN (23:13)
[2018-08-30] MEDS ORDERED: PROVERA PO ONE (23:13)
[2018-08-31 06:09] LABS: Hematocrit 23.6 % (30.3-42.9); Hemoglobin 7.8 gm/dl (10.1-14.3)
--- NOTE | 2018-08-31 16:40 | History and Physical Report ---
History of Present Illness Date of examination: 08/30/18 Date of admission: 08/30/18 11:23 Chief complaint: I feel dizzy History of present illness: Patient is a 38 year old who presented through the ED with complaint of dizzyness and shortness of breath with prolonged vaginal bleeding since 07/24/2018. Patient was seen in Ed 6 days ago and told that she had multiple uterine fibroids. She was given 10 days of Provera and told to follow up as an outpatient. She took the meds per her report and has an appointment scheduled with Dr. Pabon on 09/09/18. However, she had the above symptoms and returned to the ED on yesterday. She states that she only sees the heavier bleeding now when she uses the bathroom. Past History Past Medical History: other (anemia) Past Surgical History: no surgical history Social history: single Medications and Allergies Allergies Allergy/AdvReac Type Severity Reaction Status Date / Time No Known Allergies Allergy Verified 08/24/18 15:43 Home Medications Medication Instructions Recorded Confirmed Last Taken Type Ferrous Sulfate [Feosol 325 MG tab] 325 mg PO QDAY #30 tablet 08/28/14 08/30/18 Unknown Rx Ondansetron (Nf) [Zofran TAB] 8 mg PO Q8HR PRN #12 tablet 08/25/18 08/30/18 Unknown Rx cephALEXin [Keflex] 500 mg PO Q12HR 7 Days #14 cap 08/25/18 08/30/18 Unknown Rx medroxyPROGESTERone ACETATE 10 mg PO BID #40 tablet 08/31/18 Unknown Rx [Provera] Active Meds: Active Medications Acetaminophen (Tylenol) 650 mg PO Q6H PRN PRN Reason: Pain, Mild (1-3) Review of Systems All systems: negative Constitutional: fatigue, weakness, malaise, lethargy Gastrointestinal: abdominal pain Genitourinary: vaginal bleeding, pelvic pain - Vital Signs Vital signs: Vital Signs Temp Pulse Resp BP Pulse Ox 98.6 F 116 H 20 105/70 100 08/30/18 06:26 08/30/18 06:26 08/30/18 06:26 08/30/18 06:26 08/30/18 06:26 Temp Pulse Resp BP Pulse Ox 97.8 F 80 18 101/66 100 08/31/18 12:15 08/31/18 12:15 08/31/18 12:15 08/31/18 12:15 08/31/18 12:15 - Physical Exam Breasts: Positive: deferred Cardiovascular: Regular rate, Normal S1, Normal S2 Abdomen: Positive: normal appearance, soft, normal bowel sounds, other (enlarged uterus palpable just below umbilicus) Uterus: Positive: enlarged, nodular Results Result Diagrams: 08/31/18 05:34 08/30/18 06:43 Abnormal lab results 08/31/18 Range/Units 05:34 Hgb 7.8 L (10.1-14.3) gm/dl Hct 23.6 L (30.3-42.9) % All other labs normal. Assessment and Plan HD 2 for this patient with fibroids and chronic menorrhagia. Continue treatment with Provera. If all remains stable, patient may be discharged on tomorrow. Patient strongly advised to follow up with Dr. Pabon on 09/09
[2018-09-01 09:44] VITALS: BP 100/69
[2018-09-04 09:58] LABS: Mucus,Urine FEW /HPF
== END 2018-09-01 15:40 | disposition home or self-care (01) ==
LOC: ED 06:14 → 3A 11:23
PROVIDERS: ADMIT Obstetrics & Gynecology; ATTEND Obstetrics & Gynecology
DX: N92.0 Excessive and frequent menstruation with regular cycle (principal); D64.9 Anemia, unspecified; N94.6 Dysmenorrhea, unspecified; D25.9 Leiomyoma of uterus, unspecified; F17.210 Nicotine dependence, cigarettes, uncomplicated
CPT/HCPCS: 36415; 36430; 71045; 80048; 81001; 84703; 85007; 85014; 85018; 85025; 86850; 86900; 86901; 86920; 93005; 93010; 96361; 96365; 99284; 99406; G0378; J0696; J7030; J7040; P9016

== ENCOUNTER 2018-09-09 11:07 | Outpatient (CLI) | payer BC | END 2018-09-09 11:08 | disposition home or self-care (01) | LOC: LAB 11:07 | PROVIDERS: ATTEND Obstetrics & Gynecology | DX: N93.8 Other specified abnormal uterine and vaginal bleeding (principal); Z87.891 Personal history of nicotine dependence | CPT/HCPCS: 88305 ==